=== PATIENT | female | born 1970 | race Two or more races ===

== ENCOUNTER 2025-04-11 15:08 | Inpatient (IN) | payer OTHER ==
[~2025-04-11] VITALS: Ht 152.4 cm; Wt 63.5 kg
--- NOTE | 2025-04-11 15:38 | NUR ---
SE RECIBE PTE ALERTA, ORIENTADA X3 Y ACOMPANADA POR FAMILIAR. PTE REFIERE VOMITOS X4 EN EL BRENNA DE HOY Y DOLOR EN FLANCO GARY HACE [address] HORAS. SE MIDEN S/V Y SE UBICA.
[2025-04-11] MEDS ORDERED: 0.9 % SODIUM CHLORIDE 500 ML IV ONE (16:45)
[2025-04-11] MEDS ORDERED: FAMOTIDINE/PF 20 MG/2 ML VIAL IV ONE (16:45)
[2025-04-11] MEDS ORDERED: KETOROLAC TROMETHAMINE 30 MG VIAL IV ONE (16:45)
[2025-04-11] MEDS ORDERED: ONDANSETRON HCL 2 MG/ML VIAL IV ONE (16:45)
[2025-04-11 17:10] LABS: BASO % 0.2 % (0.1-1.2); EOS # 0.00 (0.04-0.54); EOS % 0.0 % (0.7-7.0); LYMPH # 0.42 (1.18-3.74); LYMPH % 3.1 % (19.3-53.1); MEAN PLATELET VOLUME 10.00 fl (9.4-12.4); MONO # 0.25 (0.24-0.82); MONO % 1.9 % (4.7-12.5); NEUT # 12.71 (1.56-6.13); NEUT % 94.3 % (34.0-71.1); RED CELL DISTRIBUTION WIDTH 13.6 % (11.6-14.4)
--- NOTE | 2025-04-11 17:15 | NUR ---
PTE ALERTA Y ORIENTADA X3 ES EVALUADA POR EL DR. JEFFREY. SE ORIENTA SOBRE TRATAMIENTO, VERBALIZA ENTENDER. SE CANLIZA, COLECTA MUESTRAS DE LAB Y SE ADMINISTRA MEDICAMENTO JULISSA ORDEN MEDICA BAJO MEDIDAS ASEPTICAS. SE NOTIFICA CT.
[2025-04-11 17:29] LABS: ALT/SGPT 25.0 U/L (12-78); AST/SGOT 27.0 U/L (15-37); BILIRUBIN TOTAL 0.61 mg/dL (0.3-1.2); BUN CREA RATIO 17.0 (7.0-25.0); CREATININE SERUM 0.95 mg/dL (0.55-1.02); GFR 60.63; GLOBULINA 4.0 G/DL (2.4-3.5); OSMOLALITY SERUM 284.0 MOSM/KG (275-295)
[2025-04-11 17:36] LABS: GLUCOSE FASTING 324.0 mg/dL (65-100)
[2025-04-11 17:45] LABS: BAND MAN 12.0 %; LYMPHOCYTE MAN 5.0 %; NEUTROPHILS MAN 83.0 %
[2025-04-11 18:03] LABS: URINE APPEARANCE Clear; URINE BILIRRUBIN Negative (NEGATIVE); URINE BLOOD Negative; URINE COLOR Yellow; URINE LEUKOCYTE Trace; URINE NITRATE Positive; URINE PROTEIN Negative (NEGATIVE); URINE UROBILINOGEN 0.2 E.U./dl
[2025-04-11 18:07] LABS: URINE EPITHELIAL CELLS 10.3 uL (0.0-38.8); URINE RBC 3.9 uL (0.0-20.8); URINE WBC 87.2 uL (0.0-23.2)
[2025-04-11 18:11] LABS: URINE BACTERIA > 9821.5 uL (0.0-1933); URINE CAST 0.73 uL (0.0-1.40); URINE GLUCOSE >=1000 MG/DL (NEGATIVE); URINE KETONE 40 (NEGATIVE)
[2025-04-11] MEDS ORDERED: CEFTRIAXONE SODIUM 2,000 MG VIAL IV ONE (18:45)
[2025-04-11] MEDS ORDERED: TAMSULOSIN HCL 0.4 MG CAP PO ONE (18:45)
[2025-04-11] MEDS ORDERED: DIPHENHYDRAMINE HCL 50 MG/ML VIAL 1ML IV ONE (18:45)
[2025-04-11] MEDS ORDERED: INSULIN REGULAR, HUMAN 1,000 UNIT/10 ML UNITS IV ONE (18:45)
[2025-04-11] MEDS ORDERED: FAMOTIDINE/PF 20 MG in 0.9 % SODIUM CHLORIDE 8 ML IV PUSH SCH (22:36)
[2025-04-11] MEDS ORDERED: KETOROLAC TROMETHAMINE 15 MG VIAL IU ONE (22:45)
[2025-04-11] MEDS ORDERED: ACETAMINOPHEN 500 MG GEL..CAP PO PRN (22:45)
[2025-04-11] MEDS ORDERED: 0.9 % SODIUM CHLORIDE 1,000 ML IV SCH (22:45)
[2025-04-12 03:45] LABS: CHOL HDL RATIO 2.4 (0-5.0); HDL 63.0 mg/dl (40-60); LDL 63.0 mg/dl (0-130); VLDL 23.0 (0-39)
[2025-04-12 08:00] VITALS: BP 94/59; O2SAT 96
[2025-04-12] MEDS ORDERED: ENOXAPARIN SODIUM 40 MG/0.4 ML SYRINGE SUBCUTANEO SCH (09:00)
[2025-04-12] MEDS ORDERED: CEFTRIAXONE SODIUM 2,000 MG in 0.9 % SODIUM CHLORIDE 100 ML IV SCH (09:00)
[2025-04-12 16:07] VITALS: BP 114/60; O2SAT 97
[2025-04-13 01:00] VITALS: BP 132/82; O2SAT 96
[2025-04-13 08:37] VITALS: BP 136/62; O2SAT 97
[2025-04-13 14:59] LABS: BASO % 0.1 % (0.1-1.2); EOS # 0.01 (0.04-0.54); EOS % 0.1 % (0.7-7.0); LYMPH # 0.96 (1.18-3.74); LYMPH % 6.0 % (19.3-53.1); MEAN PLATELET VOLUME 10.90 fl (9.4-12.4); MONO # 0.52 (0.24-0.82); MONO % 3.2 % (4.7-12.5); NEUT # 14.16 (1.56-6.13); NEUT % 88.1 % (34.0-71.1); RED CELL DISTRIBUTION WIDTH 14.4 % (11.6-14.4)
[2025-04-13 15:44] LABS: BAND MAN 1.0 %; LYMPHOCYTE MAN 10.0 %; MONOCYTE MAN 2.0 %; NEUTROPHILS MAN 87.0 %
[2025-04-13 15:50] LABS: ALT/SGPT 19.0 U/L (12-78); AST/SGOT 18.0 U/L (15-37); BILIRUBIN TOTAL 0.23 mg/dL (0.3-1.2); BUN CREA RATIO 14.0 (7.0-25.0); CREATININE SERUM 0.69 mg/dL (0.55-1.02); GFR 87.69; GLOBULINA 3.9 G/DL (2.4-3.5); OSMOLALITY SERUM 289.0 MOSM/KG (275-295)
[2025-04-13 15:52] LABS: GLUCOSE FASTING 324.0 mg/dL (65-100)
[2025-04-13 17:50] VITALS: BP 134/73; O2SAT 95
[2025-04-14 03:07] VITALS: BP 133/73; O2SAT 96
[2025-04-14 08:00] VITALS: BP 145/78; O2SAT 96
[2025-04-14 08:13] VITALS: BP 145/78; O2SAT 96
[2025-04-14 17:02] VITALS: BP 147/80; O2SAT 97
[2025-04-15 00:48] VITALS: BP 128/82; O2SAT 96
[2025-04-15 08:00] VITALS: BP 134/60; O2SAT 97
[2025-04-15 17:56] VITALS: BP 143/76; O2SAT 98
[2025-04-16 07:43] LABS: BUN CREA RATIO 13.0 (7.0-25.0); CREATININE SERUM 0.62 mg/dL (0.55-1.02); GFR 99.21; OSMOLALITY SERUM 288.0 MOSM/KG (275-295)
[2025-04-16 07:46] LABS: GLUCOSE FASTING 213.0 mg/dL (65-100)
[2025-04-16 07:57] LABS: BASO % 0.4 % (0.1-1.2); EOS # 0.09 (0.04-0.54); EOS % 1.1 % (0.7-7.0); LYMPH # 1.66 (1.18-3.74); MEAN PLATELET VOLUME 10.10 fl (9.4-12.4); MONO # 0.76 (0.24-0.82); MONO % 9.1 % (4.7-12.5); NEUT # 5.55 (1.56-6.13); NEUT % 66.4 % (34.0-71.1); RED CELL DISTRIBUTION WIDTH 14.7 % (11.6-14.4)
[2025-04-16 08:00] VITALS: BP 148/82; O2SAT 97
[2025-04-16 09:09] LABS: LYMPH % 19.9 % (19.3-53.1)
[2025-04-16 09:10] LABS: BAND MAN 5.0 %; LYMPHOCYTE MAN 20.0 %; MONOCYTE MAN 8.0 %; NEUTROPHILS MAN 67.0 %
[2025-04-16 17:13] VITALS: BP 148/81; O2SAT 98
== END 2025-04-16 16:25 | DRG 872 ==
LOC: ER 15:22 → SURG 22:37
PROVIDERS: General Practice; Internal Medicine; ADMIT Student in an Organized Health Care Education/Training Program; ATTEND Student in an Organized Health Care Education/Training Program
PROC: BW21ZZZ Computerized Tomography (CT Scan) of Abdomen and Pelvis (ICD-10-PCS; principal; 2025-04-11)
PROC: BW21YZZ Computerized Tomography (CT Scan) of Abdomen and Pelvis using Other Contrast (ICD-10-PCS; 2025-04-11)
PROC: BW40ZZZ Ultrasonography of Abdomen (ICD-10-PCS; 2025-04-13)
DX: A41.9 Sepsis, unspecified organism (principal); N12 Tubulo-interstitial nephritis, not specified as acute or chronic; N39.0 Urinary tract infection, site not specified; N13.30 Unspecified hydronephrosis